=== PATIENT | female | born 1965 | race African-American/Black ===

== ENCOUNTER 2017-04-14 18:39 | Emergency (ER) | payer BC ==
[2017-04-14 18:56] VITALS: BP 130/91; PULSE 88; TEMP 98; BMI 36.0
[2017-04-14] MEDS ORDERED: OSELTAMIVIR PHOSPHATE 75 MG CAPSULE ONE (19:25)
[2017-04-14] MEDS ORDERED: OSELTAMIVIR PHOSPHATE 75 MG CAPSULE PO ONE (19:25)
--- NOTE | 2017-04-14 19:25 | PDOC ---
History of Present Illness - General History Source: Patient Exam Limitations: No Limitations - History of Present Illness Initial Comments: 04/14/17 19:33 The patient is a 51 year old female with a significant PMH of type 2 diabetes, HTN, and hyperlipidemia who presents to the emergency department with flu-like symptoms including body aches, abdominal discomfort, sore throat, and a fever beginning approximately 2 days ago. The patient reports measuring her temp. yesterday at T. max 102F. She also notes feeling warm with associated night sweats since last night. The patient denies cough. 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 She reports taking Theraflu and extra strength Tylenol to some relief. The patient notes she has been taking care of her over the past week who has been sick. The patient reports her symptoms are moderate with no aggravating or alleviating factors. .The patient denies vomit, diarrhea, and constipation. Denies chest pain, shortness of breath, headache, and dizziness Denies dysuria, frequency, urgency, and hematuria. Allergies: Prochlorperazine edisylate, Prochlorperazine maleate Past surgical history: Cholecystectomy. Tubal ligation. Social history: Occasional alcohol use. No reported cigarette or drug use. PCP: None reported. <Demetri Kumar - Last Filed: 04/14/17 19:32> <Imelda Slade - Last Filed: 04/15/17 05:22> - General Chief Complaint: Cold Symptoms Stated Complaint: flu symptoms Time Seen by Provider: 04/14/17 19:12 Past History <Demetri Kumar - Last Filed: 04/14/17 19:32> - Past Medical History COPD: No Diabetes: Yes HTN: Yes Hypercholesterolemia: Yes - Surgical History Cholecystectomy: Yes Orthopedic Surgery: Yes (right bunion) - Suicide/Smoking/Psychosocial Hx Smoking Status: No Smoking History: Never smoked Have you smoked in the past 12 months: No Number of Cigarettes Smoked Daily: 0 Hx Alcohol Use: No Drug/Substance Use Hx: No Substance Use Type: None <Imelda Slade - Last Filed: 04/15/17 05:22> - Past Medical History Allergies/Adverse Reactions: Allergies Allergy/AdvReac Type Severity Reaction Status Date / Time prochlorperazine edisylate Allergy Severe psychotic Verified 04/14/17 18:48 [From Compazine] prochlorperazine maleate Allergy Severe psychotic Verified 04/14/17 18:48 [From Compazine] Home Medications: Ambulatory Orders Lisinopril [Prinivil] 20 mg PO DAILY 11/10/12 Sitagliptin Phos/Metformin HCl [Janumet 50-1,000 mg Tablet] 1 tab PO BID Aspirin [ASA -] 81 mg PO DAILY 04/14/17 Oseltamivir Phosphate [Tamiflu -] 75 mg PO BID #10 capsule 04/14/17 Review of Systems - Review of Systems Able to Perform ROS?: Yes Comments:: 04/14/17 19:33 All systems are reviewed and negative except as noted in the HPI <Demetri Kumar - Last Filed: 04/14/17 19:32> *Physical Exam - Vital Signs Last Vital Signs Temp Pulse Resp BP Pulse Ox 98 F 88 18 130/91 100 04/14/17 18:40 04/14/17 18:40 04/14/17 19:05 04/14/17 18:40 04/14/17 19:05 - Physical Exam Comments: 04/14/17 19:34 GENERAL: Awake, alert, and fully oriented, in no acute distress HEAD: No signs of trauma EYES: PERRLA, EOMI, sclera anicteric, conjunctiva clear ENT: (+) Mild pharyngeal erythema without exudates or edema. (+) Dry mucosa. Auricles normal inspection, hearing grossly normal. NECK: Normal ROM, supple, no lymphadenopathy, JVD, or masses LUNGS: Breath sounds equal, clear to auscultation bilaterally. No wheezes, and no crackles HEART: Regular rate and rhythm, normal S1 and S2, no murmurs, rubs or gallops ABDOMEN: Soft, nontender, normoactive bowel sounds. No guarding, no rebound. No masses EXTREMITIES: Normal range of motion, no edema. No clubbing or cyanosis. No cords, erythema, or tenderness NEUROLOGICAL: Cranial nerves II through XII grossly intact. Normal speech, normal gait SKIN: Warm, Dry, normal turgor, no rashes or lesions noted. <Demetri Kumar - Last Filed: 04/14/17 19:32> - Vital Signs Last Vital Signs Temp Pulse Resp BP Pulse Ox 98 F 88 18 130/91 100 04/14/17 18:40 04/14/17 18:40 04/14/17 19:05 04/14/17 18:40 04/14/17 19:05 <Imelda Slade - Last Filed: 04/15/17 05:22> ED Treatment Course - Medications Given in the ED: ED Medications Discontinued Medications Generic Name Dose Route Start Last Admin Trade Name Meenu PRN Reason Stop Dose Admin Oseltamivir Phosphate 75 mg 04/14/17 19:25 04/14/17 19:28 Tamiflu - PO 04/14/17 19:26 75 mg ONCE ONE Administration <Demetri Kumar - Last Filed: 04/14/17 19:32> Medical Decision Making - Medical Decision Making Documentation has been prepared under my direction and personally reviewed by me in its entirety. I attest that this documented accurately reflects all work, treatment, procedures and medical decision making performed by me. As noted above, this 51-year-old woman presents with several day history of acute viral syndrome symptoms. Exam as noted. Because reagent is not available for rapid influenza test, Tamiflu administration is given empirically. Patient will be started on Tamiflu first dose of 75 mg given here in the emergency room. Prescription for full 5 day course has been transmitted to her pharmacy. Patient will not attend work for the remainder of this week (or until she is afebrile for 24 hours) <Imelda Slade - Last Filed: 04/15/17 05:22> *DC/Admit/Observation/Transfer - Attestations Scribe Attestion: 04/14/17 19:34 Documentation prepared by Demetri Kumar, acting as medical assisting program director for Imelda Slade MD. <Demetri Kumar - Last Filed: 04/14/17 19:32> <Imelda Slade - Last Filed: 04/15/17 05:22> Diagnosis at time of Disposition: Acute viral syndrome - Discharge Dispostion Disposition: HOME Condition at time of disposition: Stable - Prescriptions Prescriptions: Oseltamivir Phosphate [Tamiflu -] 75 mg PO BID #10 capsule - Patient Instructions Printed Discharge Instructions: DI for Influenza -- Adult Additional Instructions: rest;drink plenty of fluids over the counter meds(such as Theraflu)as needed tamiflu 75mg twice a day for 5 days no work until no fever for 24 hours return to ER if you have persistent high fever/severe cough/shortness of breath - Post Discharge Activity Forms/Work/School Notes: Back to Work
== END 2017-04-14 19:35 | disposition home or self-care (01) ==
LOC: FER 18:39
DX: B34.9 Viral infection, unspecified (principal); I10 Essential (primary) hypertension; E11.9 Type 2 diabetes mellitus without complications; E78.5 Hyperlipidemia, unspecified
CPT/HCPCS: 99281-25

== ENCOUNTER 2018-09-26 17:57 | Emergency (ER) | payer BC | END 2018-09-27 02:04 | disposition home or self-care (01) | LOC: JER 09-27 02:04 | PROC: 3E0337Z Introduction of Electrolytic and Water Balance Substance into Peripheral Vein, Percutaneous Approach (ICD-10-PCS; principal; 2018-09-26) | PROC: 3E0333Z Introduction of Anti-inflammatory into Peripheral Vein, Percutaneous Approach (ICD-10-PCS; 2018-09-26) | PROC: 3E033GC Introduction of Other Therapeutic Substance into Peripheral Vein, Percutaneous Approach (ICD-10-PCS; 2018-09-26) | PROC: 3E033NZ Introduction of Analgesics, Hypnotics, Sedatives into Peripheral Vein, Percutaneous Approach (ICD-10-PCS; 2018-09-26) | PROC: 3E033NZ Introduction of Analgesics, Hypnotics, Sedatives into Peripheral Vein, Percutaneous Approach (ICD-10-PCS; 2018-09-26) | DX: N20.0 Calculus of kidney (principal); I10 Essential (primary) hypertension; E11.9 Type 2 diabetes mellitus without complications; Z79.84 Long term (current) use of oral hypoglycemic drugs; E78.00 Pure hypercholesterolemia, unspecified ==

== ENCOUNTER 2020-07-11 16:25 | Emergency (ER) | payer OTHER, BC ==
[2020-07-11 16:41] VITALS: BP 159/85; PULSE 75; TEMP 97.8; BMI 32.1
[2020-07-11] MEDS ORDERED: ACETAMINOPHEN 500 MG TABLET (FP) PO ONE (16:41)
[2020-07-11] MEDS ORDERED: ACETAMINOPHEN 500 MG TABLET (FP) ONE (16:44)
== END 2020-07-11 18:25 | disposition home or self-care (01) ==
LOC: FER 16:25
DX: M25.571 Pain in right ankle and joints of right foot (principal); M25.561 Pain in right knee; M25.551 Pain in right hip
CPT/HCPCS: 73523-TC-FY; 73562-TC-RT-FY; 73610-TC-RT-FY; 73630-TC-RT-FY; 82962; 99285-25

== ENCOUNTER 2021-05-14 09:10 | Day surgery (SDC) | payer OTHER ==
[2021-05-11 17:33] VITALS: BMI 32.1
[2021-05-14 12:31] VITALS: TEMP 97.8
[2021-05-14 12:35] VITALS: BP 142/71; PULSE 58
== END 2021-05-14 11:55 | disposition home or self-care (01) ==
LOC: FASU-ENDO 09:10
PROVIDERS: ATTEND Internal Medicine Gastroenterology
PROC: 0DBL8ZX Excision of Transverse Colon, Via Natural or Artificial Opening Endoscopic, Diagnostic (ICD-10-PCS; 2021-05-14)
PROC: 0DB98ZX Excision of Duodenum, Via Natural or Artificial Opening Endoscopic, Diagnostic (ICD-10-PCS; 2021-05-14)
PROC: 0DB68ZX Excision of Stomach, Via Natural or Artificial Opening Endoscopic, Diagnostic (ICD-10-PCS; 2021-05-14)
PROC: 0DBN8ZX Excision of Sigmoid Colon, Via Natural or Artificial Opening Endoscopic, Diagnostic (ICD-10-PCS; principal; 2021-05-14 10:38)
DX: Z12.11 Encounter for screening for malignant neoplasm of colon (principal); D12.3 Benign neoplasm of transverse colon; D12.5 Benign neoplasm of sigmoid colon; K29.50 Unspecified chronic gastritis without bleeding; K29.80 Duodenitis without bleeding; B96.81 Helicobacter pylori [H. pylori] as the cause of diseases classified elsewhere; R12 Heartburn
CPT/HCPCS: 82962; 88305-TC; 88342-TC